=== PATIENT | female | born 1965 | race Caucasian/White ===

== ENCOUNTER 2020-07-01 19:30 | Emergency (ER) | payer OTHER ==
--- NOTE | 2020-07-01 20:07 | EDM.PDOC ---
ED HPI GENERAL MEDICAL PROBLEM - General Chief Complaint: Genitourinary Problem Stated Complaint: UTI Time Seen by Provider: 07/01/20 19:47 Source of Information: Reports: Patient History Limitations: Reports: No Limitations - History of Present Illness INITIAL COMMENTS - FREE TEXT/NARRATIVE: Acute onset of dysuria, frequency, urgency today. Onset: Today Severity: Mild Improves with: Reports: None Worsens with: Reports: None - Related Data Home Meds: Home Meds Nitrofurantoin Monohyd/M-Cryst [Macrobid 100 mg Capsule] 100 mg PO BID 7 Days #28 capsule 07/01/20 [Rx] ED ROS GENERAL - Review of Systems Review Of Systems: See Below Constitutional: Reports: No Symptoms HEENT: Reports: No Symptoms Respiratory: Reports: No Symptoms Cardiovascular: Reports: No Symptoms GI/Abdominal: Reports: No Symptoms. Denies: Hematochezia, Nausea, Vomiting : Reports: Dysuria, Frequency, Urgency Musculoskeletal: Reports: No Symptoms Neurological: Reports: No Symptoms Psychiatric: Reports: No Symptoms ED EXAM, RENAL/ - Physical Exam Exam: See Below Course - Orders/Labs/Meds Orders: Active Orders 24 hr Category Date Time Status Nitrofurantoin Isabel[place]/Macrocryst [Macrobid] Med 07/01/20 20:39 Once 100 mg PO ONETIME ONE Phenazopyridine [Pyridium] Med 07/01/20 20:45 Ordered 100 mg PO BID Medication Orders Nitrofurantoin Macrocrystals (Macrobid) 100 mg PO ONETIME ONE Stop: 07/01/20 20:40 Phenazopyridine HCl (Pyridium) 100 mg PO BID JONATHAN Labs: Laboratory Tests 07/01/20 Range/Units 20:05 Urine Color Yellow Urine Appearance Clear (CLEAR) Urine pH 7.0 (5.0-8.0) Ur Specific [place] 1.025 (1.003-1.030) Urine Protein Negative (NEGATIVE) mg/dL Urine Glucose (UA) Negative (NEGATIVE) mg/dL Urine Ketones Trace H (NEGATIVE) mg/dL Urine Occult Blood Trace-intact H (NEGATIVE) Urine Nitrite Negative (NEGATIVE) Urine Bilirubin Negative (NEGATIVE) Urine Urobilinogen 1.0 (0.2-1.0) E.U./dL Ur Leukocyte Esterase Trace H (NEGATIVE) Urine RBC 0-5 H /HPF Urine WBC 50-75 H /HPF Urine WBC Clumps Few /HPF Ur Squamous Epith Cells Few /HPF Urine Bacteria Few /HPF Meds: Medications Generic Name Dose Route Start Last Admin Trade Name Elias PRN Reason Stop Dose Admin Nitrofurantoin Macrocrystals 100 mg 07/01/20 20:39 Macrobid PO 07/01/20 20:40 ONETIME ONE Phenazopyridine HCl 100 mg 07/01/20 20:45 Pyridium PO BID JONATHAN - Re-Assessments/Exams Free Text/Narrative Re-Assessment/Exam: 07/01/20 19:48 urine ordered - results 07/01/20 20:36 UA c/w cystitis Free Text/Narrative Re-Assessment/Exam: 07/01/20 20:36 Pt was prescribe Macrobid 100mg BID for 7 days Pyridium 100mg Departure - Departure Time of Disposition: 20:42 Disposition: Home, Self-Care 01 Condition: Good Clinical Impression: UTI, Urinary tract infectious disease - Discharge Information *PRESCRIPTION DRUG MONITORING PROGRAM REVIEWED*: No *COPY OF PRESCRIPTION DRUG MONITORING REPORT IN PATIENT SARAI: No Prescriptions: Nitrofurantoin Monohyd/M-Cryst [Macrobid 100 mg Capsule] 100 mg PO BID 7 Days #28 capsule Forms: ED Department Discharge - My Orders Last 24 Hours: My Active Orders 07/01/20 20:39 Nitrofurantoin [place]/Macrocryst [Macrobid] 100 mg PO ONETIME ONE 07/01/20 20:45 Phenazopyridine [Pyridium] 100 mg PO BID - Assessment/Plan Last 24 Hours: My Active Orders 07/01/20 20:39 Nitrofurantoin [place]/Macrocryst [Macrobid] 100 mg PO ONETIME ONE 07/01/20 20:45 Phenazopyridine [Pyridium] 100 mg PO BID
[2020-07-01] MEDS ORDERED: Nitrofurantoin Monohydrate/Macrocrystalline 100 MG Cap PO ONE (20:39)
[2020-07-01] MEDS ORDERED: Phenazopyridine 100 MG Tab PO SCH (20:45)
[2020-07-01] MEDS ORDERED: Phenazopyridine 100 MG Tab ONE (21:00)
[2020-07-01] MEDS ORDERED: Nitrofurantoin Macrocrystal 50 MG Cap ONE (21:00)
== END 2020-07-01 21:07 | disposition home or self-care (01) ==
LOC: LB.ED 19:30
DX: N39.0 Urinary tract infection, site not specified (principal)
CPT/HCPCS: 81001; 99283; A9270